=== PATIENT | female | born 1960 ===

== ENCOUNTER 2017-05-05 02:15 | Emergency (ER) | payer OTHER ==
[2017-05-05 02:15] VITALS: BMI 36.1
[2017-05-05 02:48] VITALS: RESP 16; O2SAT 98
--- NOTE | 2017-05-05 03:25 | ED PDOC ---
HPI: Female Pain Time Seen by Provider: 05/05/17 02:15 Chief Complaint (Nursing): Female Genitourinary Chief Complaint (Provider): Urinary Symptoms History Per: Patient History/Exam Limitations: no limitations Onset/Duration Of Symptoms: Hrs (x4.5) Current Symptoms Are (Timing): Still Present Quality Of Discomfort: "Pain" Associated Symptoms: Other ((+) bilateral flank pain). denies: Fever, Vomiting Additional Complaint(s): 56 year old female presents to ED with complaints of hematuria x4.5 hours and has a past medical history of DM, HTN, depression, and asthma. (-) fever, vomiting, or vaginal bleeding. (+) bilateral flank pain. Patient denies ever experiencing these symptoms in the past. PCP: AJ Abnormal Vaginal Bleeding: No Past Medical History Reviewed: Historical Data, Nursing Documentation, Vital Signs Vital Signs: Last Vital Signs Temp 99.2 F 05/05/17 02:33 Pulse 84 05/05/17 02:33 Resp 16 05/05/17 02:33 BP 125/71 05/05/17 02:33 Pulse Ox 98 05/05/17 02:33 - Medical History PMH: Anxiety, Asthma (NEVER HOSPITALIZED), Bronchitis, Cardia Arrhythmia ( PALPITATIONS), Depression, Gastritis, HTN, Hypercholesterolemia Denies: Chronic Kidney Disease - Surgical History Surgical History: Endoscopy Other surgeries: Hysterectomy, Multiple ortho surgeries - Family History Family History: States: Unknown Family Hx - Social History Current smoker - smoking cessation education provided: No Ex-Smoker (has not smoked in the last 12 months): No Alcohol: None Drugs: Denies - Home Medications Home Medications: Ambulatory Orders Medication Instructions Recorded Albuterol HFA [Ventolin HFA 90 2 puff IH DAILY 09/30/16 mcg/actuation (8 g)] Aripiprazole [Abilify] 20 mg PO HS 09/30/16 Calcium Carbonate/Vitamin D3 1 tab PO DAILY 09/30/16 [Oyster Shell Calcium-Vit D Tab] Citalopram [celeXA] 20 mg PO DAILY 09/30/16 Clopidogrel [Plavix] 75 mg PO DAILY 09/30/16 Enalapril Maleate [Vasotec] 10 mg PO DAILY 09/30/16 Gabapentin [Neurontin] 300 mg PO TID PRN 09/30/16 Lorazepam [Ativan] 0.25 mg PO BID 09/30/16 MetFORMIN [glucOPHAGE] 1,000 mg PO BID 09/30/16 Mirtazapine [Remeron] 30 mg PO HS 09/30/16 Mometasone/Formoterol [Dulera 200 1 puff IH DAILY 09/30/16 Mcg/5 Mcg Inhaler] Montelukast [Singulair] 10 mg PO DAILY 09/30/16 Pantoprazole [Protonix] 40 mg PO DAILY 09/30/16 Saxagliptin HCl [Onglyza] 5 mg PO DAILY 09/30/16 amLODIPine [Norvasc] 2.5 mg PO DAILY 09/30/16 Nitrofurantoin Macrocrystals 100 mg PO BID #14 cap 05/05/17 [Macrobid] - Allergies Allergies/Adverse Reactions: Allergies Allergy/AdvReac Type Severity Reaction Status Date / Time aspirin Allergy Intermediate RASH Verified 09/30/16 10:27 diphenhydramine HCl Allergy Intermediate RASH Verified 09/30/16 10:28 [From Benadryl] oxycodone HCl [From Percocet] Allergy Intermediate RASH Verified 09/30/16 10:28 peanut Allergy Intermediate RASH Verified 09/30/16 10:27 moxifloxacin [From Avelox] Allergy RASH Verified 05/05/17 05:06 Review of Systems ROS Statement: Except As Marked, All Systems Reviewed And Found Negative Constitutional: Negative for: Fever Gastrointestinal: Positive for: Abdominal Pain ((+) bilateral flank pain). Negative for: Vomiting Genitourinary Female: Positive for: Hematuria. Negative for: Vaginal Bleeding Physical Exam - Reviewed Nursing Documentation Reviewed: Yes Vital Signs Reviewed: Yes - Physical Exam Appears: Positive for: Non-toxic, No Acute Distress Skin: Positive for: Normal Color, Warm, Dry Eye Exam: Positive for: Normal appearance ENT: Positive for: Normal ENT Inspection Neck: Positive for: Normal Cardiovascular/Chest: Positive for: Regular Rate, Rhythm. Negative for: Murmur Respiratory: Positive for: Normal Breath Sounds. Negative for: Respiratory Distress Gastrointestinal/Abdominal: Positive for: Soft, Tenderness (bilateral flank tenderness) Back: Positive for: Normal Inspection Extremity: Positive for: Normal ROM. Negative for: Deformity Neurologic/Psych: Positive for: Alert, Oriented. Negative for: Motor/Sensory Deficits - Laboratory Results Result Diagrams: 05/05/17 03:47 05/05/17 03:47 - ECG O2 Sat by Pulse Oximetry: 98 (RA) Pulse Ox Interpretation: Normal Medical Decision Making Medical Decision Makin Initial impression: Initial plan: * Labs * Urine C&S * UA 0520 Labs reviewed: patient has UTI. Will administer IV Rocephin firs dose pt aware 0547 Upon re-evaluation, patient is feeling better and is medically stable for discharge home. pt feels well otherwise, tolerating po. Patient will be prescribed Macrobid for UTI and must follow up with PCP for further work up of hematuria. Scribe Attestation: Documented by Corinna Hart acting as a scribe for Fern Roman MD. MD Scribe Attestation: All medical record entries made by the Scribe were at my direction and personally dictated by me. I have reviewed the chart and agree that the record accurately reflects my personal performance of the history, physical exam, medical decision making, and the department course for this patient. I have also personally directed, reviewed, and agree with the discharge instructions and disposition. Disposition - Clinical Impression Clinical Impression: UTI (urinary tract infection), Hematuria - Patient ED Disposition Is Patient to be Admitted: No Counseled Patient/Family Regarding: Studies Performed, Diagnosis, Need For Followup, Rx Given - Disposition Referrals: [facility] [Outside] [facility] [Outside] Disposition: Routine/Home Disposition Time: 04:45 Condition: IMPROVED Additional Instructions: follow up with your primary doctor in 1-2 days return to the ED with any worsening or concerning symptoms. Prescriptions: Nitrofurantoin Macrocrystals [Macrobid] 100 mg PO BID #14 cap Instructions: Urinary Tract Infection in Women (ED), Acute Hematuria (ED) Forms: [employer] ([place]ese)
[2017-05-05 03:50] LABS: BASO # 0.1 K/uL (0.0-0.2); BASO % 0.5 % (0.0-2.0); EOS # 0.2 K/uL (0.0-0.7); EOS % 1.8 % (0.0-4.0); HEMATOCRIT 41.5 % (34.0-47.0); LYMPH # 3.7 K/uL (1.0-4.3); LYMPH % 26.6 % (20.0-40.0); MEAN CELL VOLUME 96.6 fl (81.0-99.0); MEAN CORPUSCULAR HEMOGLOBIN 31.3 pg (27.0-31.0); MEAN CORPUSCULAR HGB CONC 32.4 g/dL (33.0-37.0); MEAN PLATELET VOLUME 8.2 fl (7.2-11.7); MONO # 0.6 K/uL (0.0-0.8); MONO % 4.6 % (0.0-10.0); NEUT # 9.3 K/uL (1.8-7.0); NEUT % 66.5 % (50.0-75.0); WHITE BLOOD COUNT 13.9 K/uL (4.8-10.8)
[2017-05-05 03:56] LABS: RBC URINE 4612 /hpf (0-3); URINE BILIRUBIN NEGATIVE (NEGATIVE); URINE BLOOD LARGE (NEGATIVE); URINE COLOR AMBER (YELLOW); URINE GLUCOSE (UA) NEG (Normal); URINE KETONE NEGATIVE (NEGATIVE); URINE LEUKOCYTE ESTERASE MOD Leu/uL (Negative); URINE PROTEIN 100 mg/dL (NEGATIVE); URINE UROBILINOGEN 0.2-1.0 mg/dL (0.2-1.0); WBC CLUMPS MANY /hpf; WBC URINE 791 /hpf (0-5)
[2017-05-05 04:24] LABS: ALB/GLOB RATIO 1.6 (1.0-2.1); ALKALINE PHOSPHATASE 88 U/L (38-126); ALT/SGPT 75 U/L (9-52); AST/SGOT 58 U/L (14-36); BILIRUBIN,TOTAL 0.5 mg/dl (0.2-1.3); BLOOD UREA NITROGEN 15 mg/dl (7-17); CALCIUM 9.5 mg/dL (8.4-10.2); CARBON DIOXIDE 26 mmol/L (22-30); CHLORIDE 100 mmol/L (98-107); GFR AFRICAN-AMERICAN > 60; GLUCOSE,RANDOM 169 mg/dL (65-105); POTASSIUM 4.7 MMOL/L (3.6-5.0); SODIUM 140 mmol/l (132-148); TOTAL PROTEIN 7.5 G/DL (6.3-8.2)
[2017-05-05] MEDS ORDERED: cefTRIAXone (Rocephin) 1 gm Inj ONE (05:03)
[2017-05-05] MEDS: Sodium Chloride 0.9% 1,000 ML IV STA (05:04)
[2017-05-05 06:17] VITALS: BP 132/78; PULSE 82; TEMP 98.7
== END 2017-05-05 06:19 | disposition home or self-care (01) ==
LOC: H.ER 02:15
DX: N39.0 Urinary tract infection, site not specified (principal); F41.9 Anxiety disorder, unspecified; Z79.84 Long term (current) use of oral hypoglycemic drugs; E11.9 Type 2 diabetes mellitus without complications
CPT/HCPCS: 80053; 81003; 85025; 87086; 87181; 96365; 99284; J0696; J1885; J7040

== ENCOUNTER 2019-01-13 08:55 | Emergency (ER) | payer OTHER ==
[2019-01-13 09:05] VITALS: PULSE 97; RESP 16; TEMP 98.8; O2SAT 96; BMI 34.7
[2019-01-13] MEDS ORDERED: Albuterol 0.083% Inhal Sol (2.5 mg/3 mL) UD INH ONE (09:41)
[2019-01-13] MEDS ORDERED: Albuterol 0.083% Inhal Sol (2.5 mg/3 mL) UD ONE (09:53)
[2019-01-13 10:17] LABS: MEAN CELL VOLUME 96.8 fl (81.0-99.0); MEAN CORPUSCULAR HEMOGLOBIN 32.3 pg (27.0-31.0); MEAN CORPUSCULAR HGB CONC 33.3 g/dL (33.0-37.0); MEAN PLATELET VOLUME 7.7 fl (7.2-11.7); RBC 4.03 Mil/uL (3.80-5.20); RED CELL DISTRIBUTION WIDTH 13.3 % (11.5-14.5); WHITE BLOOD COUNT 8.8 K/uL (4.8-10.8)
[2019-01-13 10:18] LABS: BASO # 0.1 K/uL (0.0-0.2); BASO % 0.7 % (0.0-2.0); EOS # 0.2 K/uL (0.0-0.7); EOS % 2.6 % (0.0-4.0); LYMPH # 2.9 K/uL (1.0-4.3); MONO # 0.5 K/uL (0.0-0.8); MONO % 5.6 % (0.0-10.0); NEUT # 5.1 K/uL (1.8-7.0); NEUT % 58.1 % (50.0-75.0); NRBC % 0.2 % (0.0-0.0)
[2019-01-13 10:35] LABS: ALB/GLOB RATIO 1.6 (1.0-2.1); ALBUMIN 4.6 g/dL (3.5-5.0); ALT/SGPT 52 U/L (9-52); AST/SGOT 50 U/L (14-36); BLOOD UREA NITROGEN 13 mg/dl (7-17); CALCIUM 9.2 mg/dL (8.4-10.2); GFR NON-AFRICAN AMERICAN > 60
--- NOTE | 2019-01-13 11:21 | ED PDOC ---
HPI: Chest Pain Time Seen by Provider: 01/13/19 09:16 Chief Complaint (Nursing): Chest Pain Chief Complaint (Provider): Chest Pain History Per: Patient History/Exam Limitations: no limitations Onset/Duration Of Symptoms: Days (4) Additional Complaint(s): 58 y/o female presents to the ED complaining of body aches, rib pain, and back pain for 4 days associated with productive cough with yellow phlegm. Patient denies fever, vomiting, or any diarrhea. [facility] [email or web address][id number] PMD: Dr. Gross Past Medical History Reviewed: Historical Data, Nursing Documentation, Vital Signs Vital Signs: Last Vital Signs Temp 98.8 F 01/13/19 09:04 Pulse 97 H 01/13/19 09:04 Resp 16 01/13/19 09:04 BP 120/73 01/13/19 09:04 Pulse Ox 96 01/13/19 09:04 Primary Care Provider: Pauline Gross - Medical History PMH: Anxiety, Asthma (NEVER HOSPITALIZED), Bronchitis, Cardia Arrhythmia (PALPITATIONS), Depression, Gastritis, HTN, Hypercholesterolemia Denies: Chronic Kidney Disease - Surgical History Surgical History: Endoscopy, Other surgeries: Knee and Hand surgery - Family History Family History: States: Unknown Family Hx - Social History Current smoker - smoking cessation education provided: No Alcohol: None - Home Medications Home Medications: Ambulatory Orders Medication Instructions Recorded Albuterol HFA [Ventolin HFA 90 2 puff IH DAILY 09/30/16 mcg/actuation (8 g)] Aripiprazole [Abilify] 20 mg PO HS 09/30/16 Calcium Carbonate/Vitamin D3 1 tab PO DAILY 09/30/16 [Oyster Shell Calcium-Vit D Tab] Citalopram [celeXA] 20 mg PO DAILY 09/30/16 Clopidogrel [Plavix] 75 mg PO DAILY 09/30/16 Enalapril Maleate [Vasotec] 10 mg PO DAILY 09/30/16 Gabapentin [Neurontin] 300 mg PO TID PRN 09/30/16 Lorazepam [Ativan] 0.25 mg PO BID 09/30/16 MetFORMIN [glucOPHAGE] 1,000 mg PO BID 09/30/16 Mirtazapine [Remeron] 30 mg PO HS 09/30/16 Mometasone/Formoterol [Dulera 200 1 puff IH DAILY 09/30/16 Mcg/5 Mcg Inhaler] Montelukast [Singulair] 10 mg PO DAILY 09/30/16 Pantoprazole [Protonix] 40 mg PO DAILY 09/30/16 Saxagliptin HCl [Onglyza] 5 mg PO DAILY 09/30/16 amLODIPine [Norvasc] 2.5 mg PO DAILY 09/30/16 Nitrofurantoin Macrocrystals 100 mg PO BID #14 cap 05/05/17 [Macrobid] Albuterol HFA [Ventolin HFA 90 1 - 2 puff IH Q4H PRN #1 bottle 01/13/19 mcg/actuation (8 g)] Azithromycin [Zithromax] 250 mg PO DAILY #6 tab 01/13/19 - Allergies Allergies/Adverse Reactions: Allergies Allergy/AdvReac Type Severity Reaction Status Date / Time aspirin Allergy Intermediate RASH Verified 01/13/19 09:12 diphenhydramine HCl Allergy Intermediate RASH Verified 01/13/19 09:12 [From Benadryl] oxycodone HCl [From Percocet] Allergy Intermediate RASH Verified 01/13/19 09:12 peanut Allergy Intermediate RASH Verified 01/13/19 09:12 moxifloxacin [From Avelox] Allergy RASH Verified 01/13/19 09:12 EDITH Risk Score for UA/NSTEMI - EDITH Risk Score Age > 64: NO 3 or more CAD Risk Factors: NO Known CAD (Stenosis greater than 50%): NO Aspirin use in past 7 days: NO Severe Angina: NO EKG ST changes greater than 0.5mm: NO Positive Cardiac Marker: NO EDITH Score: 0 Risk %: 5% Wells Criteria for PE - Wells Criteria for Pulmonary Embolism Clinical Signs and Symptoms of DVT: No P.E is #1 Diagnosis, or Equally Likely: No Heart Rate >100: No Immobilization at least 3 days;Surgery previous 4 weeks: No Previous, objectively diagnosed PE or DVT: No Hemoptysis: No Malignancy w/treatment within 6 months, or palliative: No Total Score: 0 Review of Systems ROS Statement: Except As Marked, All Systems Reviewed And Found Negative Constitutional: Negative for: Fever Cardiovascular: Positive for: Other (Rib pain) Respiratory: Positive for: Cough Gastrointestinal: Negative for: Vomiting, Diarrhea Musculoskeletal: Positive for: Back Pain, Other (Bodyaches.) Physical Exam - Reviewed Nursing Documentation Reviewed: Yes Vital Signs Reviewed: Yes - Physical Exam Appears: Positive for: Well, Non-toxic, No Acute Distress Head Exam: Positive for: ATRAUMATIC, NORMAL INSPECTION, NORMOCEPHALIC Skin: Positive for: Normal Color, Warm, Dry Eye Exam: Positive for: EOMI, Normal appearance, PERRL ENT: Positive for: Normal ENT Inspection Neck: Positive for: Normal, Painless ROM, Supple Cardiovascular/Chest: Positive for: Regular Rate, Rhythm. Negative for: Murmur Respiratory: Positive for: Normal Breath Sounds. Negative for: Wheezing Gastrointestinal/Abdominal: Positive for: Normal Exam, Soft. Negative for: Tend erness Back: Positive for: Normal Inspection. Negative for: L CVA Tenderness, R CVA Tenderness Extremity: Positive for: Normal ROM Neurological/Psych: Positive for: Awake, Alert, Normal Tone, Oriented (x3). Negative for: Motor/Sensory Deficits - Laboratory Results Result Diagrams: 01/13/19 10:00 01/13/19 10:00 Lab Results: Total Bilirubin 0.4 mg/dl (0.2-1.3) 01/13/19 10:00 AST 50 U/L (14-36) H 01/13/19 10:00 ALT 52 U/L (9-52) D 01/13/19 10:00 Alkaline Phosphatase 76 U/L (38-126) 01/13/19 10:00 Total Protein 7.4 G/DL (6.3-8.2) 01/13/19 10:00 Albumin 4.6 g/dL (3.5-5.0) 01/13/19 10:00 Globulin 2.8 gm/dL (2.2-3.9) 01/13/19 10:00 Albumin/Globulin Ratio 1.6 (1.0-2.1) 01/13/19 10:00 - ECG O2 Sat by Pulse Oximetry: 96 Medical Decision Making Medical Decision Making: Time:940 Impression:Chest pain. Rule out flu and pneumonia. Plan: -EKG -CMP -CBC -Chest x-ray -Albuterol 2.5mg -Motrin 600mg PO -Tylenol 325mg PO -PEAK FLOW -Influenza 11:12: Flu came out negative, sugar mild elevated,x-ray on my view appears negative. Will give z-pack and follow up as outpatient. ------ Scribe Attestation: Documented by Sarah Ojeda, acting as a scribe for Fern Montez. Provider Scribe Attestation: All medical record entries made by the Scribe were at my direction and personally dictated by me. I have reviewed the chart and agree that the record accurately reflects my personal performance of the history, physical exam, medical decision making, and the department course for this patient. I have also personally directed, reviewed, and agree with the discharge instructions and di sposition. Disposition - Clinical Impression Clinical Impression: Bronchitis - Patient ED Disposition Is Patient to be Admitted: No Counseled Patient/Family Regarding: Studies Performed, Diagnosis, Need For Followup - Disposition Disposition: Routine/Home Disposition Time: 11:15 Condition: IMPROVED Additional Instructions: follow up with your primary doctor in 1-2 days return to the ED with any worsening or concerning symptoms Prescriptions: Albuterol HFA [Ventolin HFA 90 mcg/actuation (8 g)] 1 - 2 puff IH Q4H PRN #1 b ottle PRN Reason: Wheezing Azithromycin [Zithromax] 250 mg PO DAILY #6 tab Instructions: Acute Bronchitis, Adult (DC) Forms: [employer] ([place]), [employer] ([place]) Print Language: THAI
--- NOTE | 2019-01-13 11:35 | RAD ---
Date of service: 01/13/2019 HISTORY: cough COMPARISON: 09/10/2018 TECHNIQUE: Chest PA and lateral views FINDINGS: LUNGS: No active pulmonary disease. PLEURA: No significant pleural effusion identified. No pneumothorax apparent. CARDIOVASCULAR: No aortic atherosclerotic calcification present. Normal cardiac size. No pulmonary vascular congestion. OSSEOUS STRUCTURES: No significant abnormalities. VISUALIZED UPPER ABDOMEN: Normal. OTHER FINDINGS: None. IMPRESSION: No active disease. No interval pathology noted.
[2019-01-13 12:01] VITALS: BP 116/70
--- NOTE | 2019-01-13 15:54 | CARD ---
APPROVED REPORT Date of service: 01/13/2019 EKG Measurement Heart [id number] <Conclusion> Normal sinus rhythm Normal ECG
== END 2019-01-13 11:35 | disposition home or self-care (01) ==
LOC: H.ER 08:55
DX: J40 Bronchitis, not specified as acute or chronic (principal)